=== PATIENT | male | born 1980 | race Caucasian/White ===

== ENCOUNTER → 2016-08-03 | Outpatient (CLI) | payer OTHER ==
[2016-08-03 13:14] LABS: HEMATOCRIT 38.6 % (42-52); MEAN CELL VOLUME 83.5 fL (80-100); MEAN CORPUSCULAR HEMOGLOBIN 26.8 pg (25-34); MEAN CORPUSCULAR HGB CONC 32.1 g/dl (32-36); MEAN PLATELET VOLUME 10.4 fL (7.4-10.4); PLATELET COUNT 212 K/uL (130-400); RED BLOOD COUNT 4.62 M/uL (4.7-6.1); WHITE BLOOD COUNT 7.34 K/uL (4.8-10.8)
[2016-08-03 13:32] LABS: ALKALINE PHOSPHATASE 124 U/L (45-117); ALT/SGPT 73 U/L (12-78); AMYLASE 37 U/L (25-115); AST/SGOT 44 U/L (15-37)
== END | disposition home or self-care (01) ==
LOC: C.LABMFLN 07:41
PROVIDERS: ATTEND Family Medicine
DX: R11.0 Nausea (principal)

== ENCOUNTER → 2016-09-18 | Outpatient (CLI) | payer OTHER | END | disposition home or self-care (01) | LOC: C.LABMFLN 16:02 | PROVIDERS: ATTEND Family Medicine | DX: R10.13 Epigastric pain (principal) ==

== ENCOUNTER → 2016-10-02 | Outpatient (CLI) | payer OTHER ==
[2016-10-02 18:19] LABS: BLOOD UREA NITROGEN 11 mg/dl (7-18); BUN/CREATININE RATIO 12.6 (10-20); CALCIUM 8.6 mg/dl (8.5-10.1); CARBON DIOXIDE 32 mmol/L (21-32); CHLORIDE 103 mmol/L (98-107); CREATININE 0.86 mg/dl (0.60-1.40); GLUCOSE 91 mg/dl (70-99); POTASSIUM 4.2 mmol/L (3.5-5.1); SODIUM 140 mmol/L (136-145); URIC ACID 5.3 mg/dl (2.6-7.2)
== END | disposition home or self-care (01) ==
LOC: C.LABMFLN 07:36
PROVIDERS: ATTEND Family Medicine
DX: M19.079 Primary osteoarthritis, unspecified ankle and foot (principal)